=== PATIENT | female | born 1995 | race African-American/Black ===

== ENCOUNTER 2018-02-07 11:48 | Emergency (ER) | payer SELFPAY ==
[~2018-02-07] VITALS: Ht 162.6 cm; Wt 59.1 kg
[2018-02-07 11:49] VITALS: BP 149/96
[2018-02-07] MEDS ORDERED: CRYS28TA PO (11:53)
[2018-02-07] MEDS ORDERED: KETOROLAC TROMETHAMINE 10 MG TAB PO ONE (12:30)
[2018-02-07] MEDS ORDERED: CLINDAMYCIN 150 MG CAP PO ONE (12:30)
[2018-02-07] MEDS ORDERED: KETO10TAB PO (12:33)
[2018-02-07] MEDS ORDERED: CLEO300C2 PO (12:33)
== END 2018-02-07 12:38 | disposition home or self-care (01) ==
LOC: M ED 11:48
DX: K04.7 Periapical abscess without sinus (principal); R68.84 Jaw pain; F17.200 Nicotine dependence, unspecified, uncomplicated

== ENCOUNTER → 2018-04-27 | Outpatient (REF) | payer OTHER ==
[~2018-04-27] MED LIST: CLEO300C2 PO; CRYS28TA PO; KETO10TAB PO
[2018-04-27 14:01] LABS: CHLAMYDIA DNA AMPLIFICATION NEGATIVE (NEGATIVE); GC DNA AMPLIFICATION NEGATIVE (NEGATIVE)
== END ==
LOC: M SFHCWAGY 08:53
PROVIDERS: ATTEND Nurse Practitioner Women's Health
DX: Z12.4 Encounter for screening for malignant neoplasm of cervix (principal)

== ENCOUNTER → 2018-07-03 | Outpatient (REF) | payer OTHER ==
[2018-07-03 15:28] LABS: CHLAMYDIA DNA AMPLIFICATION NEGATIVE (NEGATIVE); GC DNA AMPLIFICATION NEGATIVE (NEGATIVE)
== END ==
LOC: M LAB REF 12:30
PROVIDERS: ATTEND Physician Assistant
DX: Z20.2 Contact with and (suspected) exposure to infections with a predominantly sexual mode of transmission (principal)

== ENCOUNTER → 2018-07-13 | Outpatient (REF) | payer OTHER ==
[2018-07-14 11:08] LABS: CHLAMYDIA DNA AMPLIFICATION NEGATIVE (NEGATIVE); GC DNA AMPLIFICATION NEGATIVE (NEGATIVE)
== END ==
LOC: M LAB REF 14:30
PROVIDERS: ATTEND Physician Assistant
DX: Z20.2 Contact with and (suspected) exposure to infections with a predominantly sexual mode of transmission (principal)

== ENCOUNTER → 2018-07-28 | Outpatient (REF) | payer OTHER ==
[2018-07-28 23:21] LABS: CHLAMYDIA DNA AMPLIFICATION NEGATIVE (NEGATIVE); GC DNA AMPLIFICATION NEGATIVE (NEGATIVE)
== END ==
LOC: M LAB REF 10:55
PROVIDERS: ATTEND Physician Assistant
DX: Z11.3 Encounter for screening for infections with a predominantly sexual mode of transmission (principal)

== ENCOUNTER → 2018-08-24 | Outpatient (REF) | payer OTHER ==
[2018-08-24 23:27] LABS: CHLAMYDIA DNA AMPLIFICATION NEGATIVE (NEGATIVE); GC DNA AMPLIFICATION NEGATIVE (NEGATIVE)
== END ==
LOC: M LAB REF 09:46
PROVIDERS: ATTEND Physician Assistant
DX: N39.0 Urinary tract infection, site not specified (principal)